=== PATIENT | male | born 1985 | race Two or more races ===

== ENCOUNTER 2021-09-21 22:49 | Emergency (ER) | payer MEDICAID, OTHER ==
[~2021-09-21] VITALS: Ht 180.3 cm; Wt 82.6 kg
[2021-09-21 23:26] LABS: Urine Bacteria FEW /hpf (None Seen); Urine Blood Negative /uL (Negative); Urine Hyaline Cast FEW /lpf (0 - 2); Urine Mucus FEW (None Seen); Urine WBC 2 /hpf (0 - 3)
[2021-09-21 23:43] LABS: Amphetamine Screen, Urine POSITIVE (NEGATIVE); Barbiturate Scree,Urine NEGATIVE (NEGATIVE); Benzodiazephine Screen, Urine NEGATIVE (NEGATIVE); Cannabinoid Screen, Urine POSITIVE (NEGATIVE); Opiate Scree,Urine NEGATIVE (NEGATIVE); Phencyclidine Screen, Urine POSITIVE (NEGATIVE)
[2021-09-21 23:50] LABS: Cocaine Screen, Urine NEGATIVE (NEGATIVE)
[2021-09-22 02:16] LABS: Acetaminophen < 2.0 ug/mL (10-30); Salicylate 2.8 mg/dL (2.8-20.0)
[2021-09-22 09:39] VITALS: BP 110/68
== END 2021-09-22 10:16 | disposition still patient (30) ==
LOC: ER 22:51
DX: R45.851 Suicidal ideations (principal); F19.90 Other psychoactive substance use, unspecified, uncomplicated; F17.210 Nicotine dependence, cigarettes, uncomplicated; Z20.822 Contact with and (suspected) exposure to COVID-19
CPT/HCPCS: 36415; 80307; 80320; 80329; 81001; 87426

== ENCOUNTER 2021-11-18 15:49 | Emergency (ER) | payer MEDICAID, SELFPAY ==
[~2021-11-18] VITALS: Ht 180.3 cm; Wt 82.6 kg
[2021-11-18 15:49] VITALS: BP 116/69
[2021-11-18] MEDS ORDERED: KETOROLAC TROMETH 60MG/2ML VIAL IM ONE (17:00)
[2021-11-18] MEDS ORDERED: IBUP800T27 PO (17:21)
== END 2021-11-18 17:35 | disposition home or self-care (01) ==
LOC: ER 15:49
DX: M25.562 Pain in left knee (principal); F17.210 Nicotine dependence, cigarettes, uncomplicated; Z79.1 Long term (current) use of non-steroidal anti-inflammatories (NSAID); Z59.00 Homelessness unspecified
CPT/HCPCS: 96372; 99283; J1885